=== PATIENT | male | born 1930 | race Caucasian/White ===

== ENCOUNTER 2016-10-05 15:16 | Inpatient (IN) | payer MEDICARE, OTHER ==
--- NOTE | ~2016-10-05 | DS ---
Discharge Summary [facility] [address] [place]. [address] NAME: DOROTEO LANGE : 29 STATUS : DIS IN PAT#: [id number] AGE: 86 ADM/REG DATE : 10/05/16 MR#: [id number] REPORT SERV DATE: 10/07/16 DICTATED BY: MAHAD LAWRENCE DATE: 10/07/16 REPORT STATUS : Draft TRANSCRIBED BY: NILESH DATE: 10/07/16 ADMISSION DATE: 10/05/2016 DISCHARGE DATE: 10/07/2016 More than 30 minutes in total was spent on this discharge. DISCHARGE DIAGNOSES: 1. Right lower extremity cellulitis. 2. Sepsis syndrome. 3. Renal insufficiency. 4. Hypertension. DISPOSITION: The patient will be discharged in excellent condition to the followup with the primary care physician, Dr. Landis in [place] in one to two weeks. DISCHARGE MEDICATIONS: Allopurinol 100 mg once daily, aspirin 81 mg once daily, carvedilol 25 mg b.i.d., niacin 750 mg two p.o. at bedtime, omeprazole 20 mg daily, pravastatin 40 mg daily, Hytrin 5 mg two p.o. at bedtime, fish oil daily, Lasix 40 mg daily, and potassium chloride 20 mEq daily. LABORATORY DATA: Pertinent testing during hospitalization includes a white blood count on admission of 15,000, on discharge 7.9, hemoglobin 12.9, sodium 139, potassium 3.9, chloride 107, BUN and creatinine of 14 and 1.9 on admission, on discharge his creatinine was 1.2, with a GFR 54. His glucose is 97, and calcium 10.1. HOSPITAL COURSE: Mr. Lange is an 86-year-old white gentleman, who presented to the hospital with right lower extremity redness, rigors, chills, and high fevers. He was started on IV vancomycin. He dramatically improved over the next 36 hours. At this point, he is completely afebrile. His white blood count has returned to normal. He is feeling much better. His right leg edema and redness is significantly improved. His renal insufficiency has resolved. At this point, he will be discharged home in excellent condition. DICTATED BY: Mahad Lawrence M.D. DD/NILESH Mahad Lawrence M.D. / [id number] CC: Mahad Lawrence M.D. Discharge Summary [address] [address] NAME: DOROTEO LANGE : 29 STATUS : DIS IN PAT#: [id number] AGE: 86 ADM/REG DATE : 10/05/16 MR#: [id number] REPORT SERV DATE: 10/07/16 DICTATED BY: MAHAD LAWRENCE DATE: 10/07/16 REPORT STATUS : Draft TRANSCRIBED BY: MODL DATE: 10/07/16 Thomas Landis D.O.
--- NOTE | ~2016-10-05 | HP ---
History And Physical [place] [address] [facility] [place]. [address] NAME: DOROTEO LANGE : 29 STATUS : ADM IN [facility]#: [id number] AGE: 86 ADM/REG DATE : 10/05/16 MR#: [id number] REPORT SERV DATE: 10/05/16 DICTATED BY: JADEN BAH DATE: 10/05/16 REPORT STATUS : Draft TRANSCRIBED BY: MODL DATE: 10/05/16 DATE OF ADMISSION: 10/05/2016 CHIEF COMPLAINT: An 86-year-old male presenting with fevers and right leg cellulitis. HISTORY OF PRESENTING ILLNESS: The patient's history was obtained through careful interview with the patient and , coupled with review of [facility] medical records. About 4 a.m. on the morning leading up to admission, the patient began to develop abdominal pain that will come up out of his sleep. He then had rigors, chills, and high fevers today up to 101.0 (and then 102.4 here in the emergency department). He has been taking Tylenol through the day. He has developed right leg pain. He states that it is the same pain that he has had with four other episodes of cellulitis, an aching hot quality, 10/10 severity. It was not until this evening that he began to see redness develop in his leg similar to previous cellulitis bouts. His abdominal pain is diffuse, nonfocal, soreness, cramping quality, 6/10 severity that comes and goes. He has had nausea. He had one episode of slight vomiting of bile. He has had a poor appetite for about two or three days now. He had lightheadedness. No confusion. He felt unsteady on his feet and weak. No shortness of breath. No chest pain. He has had a chronic nonproductive cough for about two years. REVIEW OF SYSTEMS: Otherwise, a 14-point review of systems was obtained and was negative. PAST MEDICAL HISTORY: 1. Coronary artery disease, status post CABG, 2010. 2. Hypertension. 3. Right leg cellulitis x4. 4. Colitis, seen by Dr. Goldsmith. 5. Benign prostatic hypertrophy. 6. Gout. 7. Negative cardiac stress test, 07/2011, followed by Dr. Carson. PAST SURGICAL HISTORY: 1. CABG, 2010. 2. Left ankle cyst. 3. Left knee surgery. 4. Lumbar spine surgery. History And Physical [address] [address] NAME: DOROTEO LANGE : 29 STATUS : ADM IN [facility]#: [id number] AGE: 86 ADM/REG DATE : 10/05/16 MR#: [id number] REPORT SERV DATE: 10/05/16 DICTATED BY: JADEN BAH DATE: 10/05/16 REPORT STATUS : Draft TRANSCRIBED BY: NILESH DATE: 10/05/16 5. Hemorrhoidectomy, fissure repair. ALLERGIES: NO KNOWN DRUG ALLERGIES. SOCIAL HISTORY: Quit smoking in 1963. Occasional beer. He has been twice. Lives in [place], [place]. 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 He has two children. FAMILY HISTORY: Diabetes, brother with cancer, father with heart disease. CURRENT MEDICATIONS: Include Tylenol, allopurinol 100 mg p.o. daily, Norvasc 10 mg p.o. daily, aspirin 81 mg p.o. b.i.d., Coreg 3.25 mg p.o. b.i.d., Lasix 40 mg p.o. daily, niacin 1500 mg p.o. q.h.s., Prilosec 20 mg daily, potassium 20 mEq p.o. daily, Pravachol 40 mg p.o. daily, Hytrin 10 mg p.o. q.h.s., fish oil. PHYSICAL EXAMINATION: VITAL SIGNS: Temperature 102.4, pulse 114, blood pressure 127/53, respiratory rate 16, and O2 saturation 96% on room air. GENERAL: A pleasant, cooperative male. No evidence of acute distress. HEENT: Pupils equal, round, and reactive to light. No conjunctival pallor. No scleral icterus. Nares are patent. Oropharynx is clear of obstruction. Dry mucous membranes. NECK: Trachea midline. No thyromegaly. LYMPH: No cervical lymphadenopathy. No supraclavicular lymphadenopathy. No inguinal lymphadenopathy. RESPIRATORY: Clear to auscultation at bases. No wheezes, no rales, no rhonchi. Normal respiratory effort. CARDIOVASCULAR: Tachycardic. Regular rhythm. No murmurs, rubs, or gallops. No current extremity edema is appreciated. ABDOMEN: Minimally tender throughout. Nonfocal. No guarding. No rebound. Nondistended. No hepatosplenomegaly. DERMATOLOGICAL: The patient's right leg from about the valdivia downward to his ankle has erythema, heat, swelling, and tenderness. No ulceration. No purulent drainage at this time. Very tender to palpation. Otherwise, warm and dry extremities. No pallor. No cyanosis. PSYCHIATRIC: Normal affect. Good mood. Alert and oriented x3. LABORATORY DATA: White blood cell count 14.9, hemoglobin 15, hematocrit 42, platelets 127. Sodium 139, potassium 3.9, chloride 107, bicarb 30, BUN 14, creatinine 1.29, glucose 95, procalcitonin 5.22, lactic acid 1.5, INR 1.2, total bilirubin 1.6. Urinalysis, negative for infection. STUDIES: 1. Chest x-ray by my own evaluation shows no acute cardiopulmonary process. 2. CT scan of the abdomen and pelvis shows no acute intraabdominal process. ASSESSMENT AND PLAN: 1. Sepsis. White blood cell count of 14.9, fever of 102.4, tachycardia. Check blood History And Physical [address] [address] NAME: DOROTEO LANGE : 29 STATUS : ADM IN [facility]#: [id number] AGE: 86 ADM/REG DATE : 10/05/16 MR#: [id number] REPORT SERV DATE: 10/05/16 DICTATED BY: JADEN BAH DATE: 10/05/16 REPORT STATUS : Draft TRANSCRIBED BY: MODGrace DATE: 10/05/[address] on IV antibiotics. Noted elevated procalcitonin. We will follow. 2. Right leg cellulitis. Check blood cultures. Place on IV vancomycin. 3. Renal insufficiency. Place on IV fluids. Hold Lasix for now. 4. Abdominal pain, but negative CT scan of the abdomen and pelvis. KPL/MODL Jaden Bah M.D. / [id number] CC: Michaela Archer D.O.
[~2016-10-05 15:16] MED LIST: ASAB PO; FISH-EPA1000 MG PO; HYTRIN10 MG PO; LOP25 PO; MULTIPLE VIT PO; PRAVAC PO; ROLAIDS PO; SLO-NIACIN750 MG PO; Z100 PO
[2016-10-05 15:41] LABS: BASOPHILS 0.1 %; BASOPHILS ABSOLUTE 0.01 10/3/uL (0.0-0.16); EOSINOPHILS 0 %; HEMOGLOBIN 15.2 g/dL (13.6-17.8); IMMATURE GRANULOCYTES 0.7 %; LYMPHOCYTES 2.1 %; LYMPHOCYTES ABSOLUTE 0.31 10/3/uL (0.67-4.30); MEAN CORPUS HGB CONC 36.2 g/dL (32.0-36.0); MEAN CORPUSCULAR HEMOGLOB 33.9 pg (26.0-34.0); MEAN CORPUSCULAR VOLUME 93.5 fL (80-100); MEAN PLATELET VOLUME 9.1 fL (9.2-13.0); MONOCYTES 5.6 %; MONOCYTES ABSOLUTE 0.83 10/3/uL (0.21-1.20); NEUTROPHILS 91.5 %; NEUTROPHILS ABSOLUTE 13.62 10/3/uL (2.02-8.40); PLATELET COUNT 127 10/3/uL (150-400); RBC DISTRIBUTION WIDTH 12.5 % (12.0-16.0); RED CELL COUNT 4.49 10/6/uL (4.7-6.1)
[2016-10-05 15:42] LABS: ER CBC TAT 0 Hrs 11 Mins; MANUAL DIFF NO %; WHITE BLOOD CELLS 14.9 10/3/uL (4.5-10.5)
[2016-10-05 15:52] LABS: INTERNATIONAL NORMAL RATI 1.2 UNITS (-); PARTIAL THROMBO TIME 33.2 SEC (22.5-37.2)
[2016-10-05 15:58] LABS: A/G RATIO 1.7 (0.7-1.9); ALBUMIN 4.3 G/DL (3.5-5.0); ALKALINE PHOSPHATASE 66 U/L (45-117); BUN (BLOOD UREA NITROGEN) 14 MG/DL (6-23); CALCIUM, SERUM 10.8 MG/DL (8.5-10.4); CHLORIDE, SERUM 107 MMOL/L (96-112); CO2 (CARBON DIOXIDE) 30 MMOL/L (24-34); CREATININE 1.29 MG/DL (0.70-1.30); GFR AFRICAN AMERICAN 57 ML/MIN (>=60); GFR NON AFRICAN AMERICAN 50 ML/MIN (>=60); GLOBULIN 2.5 G/DL (2.5-4.1); GLUCOSE, SERUM 95 MG/DL (60-99); POTASSIUM, SERUM 3.9 MMOL/L (3.5-5.3); SGOT(AST) 20 U/L (5-40); SGPT(ALT) 28 U/L (5-65); SODIUM, SERUM 139 MMOL/L (135-148); TOTAL BILIRUBIN 1.6 MG/DL (0-1.2); TOTAL PROTEIN 6.8 G/DL (6.0-8.5)
[2016-10-05 16:00] LABS: LACTATE 1.5 MMOL/L (0.3-2.4)
[2016-10-05 16:29] LABS: PROCALCITONIN 5.22 ng/mL (<0.5)
[2016-10-05 16:42] LABS: WBC (NOT ORDERED) (RFLEX) 0 (0-5)
[2016-10-05 16:53] LABS: ASCORBIC ACID (UR NOT ORDER) NEG (NEG); BILIRUBIN, URINE NEGATIVE (NEG); ER URINALYSIS TAT 0 Hrs 11 Mins; KETONE, URINE NEGATIVE (NEG); LEUKOCYTE ESTERASE(NOT OR NEG (NEG); NITRITE (URINE) NEG (NEG)
[2016-10-05] MEDS ORDERED: OTC FISH OIL PO (18:19)
[2016-10-05] MEDS ORDERED: SLO-NIACIN750 MG PO (18:20)
[2016-10-05] MEDS ORDERED: NORV10 PO (18:20)
[2016-10-05] MEDS ORDERED: PRAVACHOL40 MG PO (18:21)
[2016-10-05] MEDS ORDERED: COREG3 PO (18:21)
[2016-10-05] MEDS ORDERED: HYTRIN10 MG PO (18:21)
[2016-10-05] MEDS ORDERED: HALF81 PO (18:22)
[2016-10-05] MEDS ORDERED: Z100 PO (18:22)
[2016-10-05] MEDS ORDERED: ACET500CAP PO (18:22)
[2016-10-05] MEDS ORDERED: PRILO PO (18:23)
[2016-10-05] MEDS ORDERED: L40 PO (18:23)
[2016-10-05] MEDS ORDERED: KLOR-CON M2020 MEQ PO (18:23)
[2016-10-06 05:19] LABS: BASOPHILS 0.1 %; BASOPHILS ABSOLUTE 0.01 10/3/uL (0.0-0.16); EOSINOPHILS 0.1 %; EOSINOPHILS ABSOLUTE 0.01 10/3/uL (0.0-0.53); HEMOGLOBIN 12.9 g/dL (13.6-17.8); IMMATURE GRANULOCYTES 0.3 %; IMMATURE GRANULOCYTES ABSOLUTE 0.04 10/3/uL (0.0-0.11); LYMPHOCYTES 7.8 %; LYMPHOCYTES ABSOLUTE 0.92 10/3/uL (0.67-4.30); MEAN CORPUS HGB CONC 35.5 g/dL (32.0-36.0); MEAN CORPUSCULAR HEMOGLOB 33.2 pg (26.0-34.0); MEAN CORPUSCULAR VOLUME 93.3 fL (80-100); MEAN PLATELET VOLUME 9.1 fL (9.2-13.0); MONOCYTES 4.1 %; MONOCYTES ABSOLUTE 0.49 10/3/uL (0.21-1.20); NEUTROPHILS 87.6 %; PLATELET COUNT 114 10/3/uL (150-400); RBC DISTRIBUTION WIDTH 12.7 % (12.0-16.0); RED CELL COUNT 3.89 10/6/uL (4.7-6.1); WHITE BLOOD CELLS 11.9 10/3/uL (4.5-10.5)
[2016-10-06 05:20] LABS: HEMATOCRIT 36.3 % (40.0-51.0); MANUAL DIFF NO %
[2016-10-06 05:32] LABS: INTERNATIONAL NORMAL RATI 1.5 UNITS (-)
[2016-10-06 05:33] LABS: PARTIAL THROMBO TIME 47.5 SEC (22.5-37.2)
[2016-10-06 05:36] LABS: A/G RATIO 1.4 (0.7-1.9); ALBUMIN 3.3 G/DL (3.5-5.0); ALKALINE PHOSPHATASE 54 U/L (45-117); BUN (BLOOD UREA NITROGEN) 18 MG/DL (6-23); CALCIUM, SERUM 10.4 MG/DL (8.5-10.4); CHLORIDE, SERUM 108 MMOL/L (96-112); CO2 (CARBON DIOXIDE) 22 MMOL/L (24-34); CREATININE 1.11 MG/DL (0.70-1.30); GFR AFRICAN AMERICAN 69 ML/MIN (>=60); GFR NON AFRICAN AMERICAN 59 ML/MIN (>=60); GLOBULIN 2.3 G/DL (2.5-4.1); GLUCOSE, SERUM 102 MG/DL (60-99); POTASSIUM, SERUM 3.7 MMOL/L (3.5-5.3); SGOT(AST) 19 U/L (5-40); SGPT(ALT) 24 U/L (5-65); SODIUM, SERUM 138 MMOL/L (135-148); TOTAL BILIRUBIN 1.5 MG/DL (0-1.2); TOTAL PROTEIN 5.6 G/DL (6.0-8.5); TROPONIN I <0.02 NG/ML (<0.05)
[2016-10-06 06:14] LABS: PROCALCITONIN 6.51 ng/mL (<0.5)
[2016-10-07 05:07] LABS: BASOPHILS 0.1 %; BASOPHILS ABSOLUTE 0.01 10/3/uL (0.0-0.16); EOSINOPHILS 0.6 %; EOSINOPHILS ABSOLUTE 0.05 10/3/uL (0.0-0.53); HEMATOCRIT 36.2 % (40.0-51.0); HEMOGLOBIN 12.7 g/dL (13.6-17.8); IMMATURE GRANULOCYTES 0.3 %; IMMATURE GRANULOCYTES ABSOLUTE 0.02 10/3/uL (0.0-0.11); LYMPHOCYTES 14.8 %; LYMPHOCYTES ABSOLUTE 1.17 10/3/uL (0.67-4.30); MANUAL DIFF NO %; MEAN CORPUS HGB CONC 35.1 g/dL (32.0-36.0); MEAN CORPUSCULAR HEMOGLOB 32.7 pg (26.0-34.0); MEAN CORPUSCULAR VOLUME 93.3 fL (80-100); MEAN PLATELET VOLUME 9.4 fL (9.2-13.0); MONOCYTES 7.1 %; MONOCYTES ABSOLUTE 0.56 10/3/uL (0.21-1.20); NEUTROPHILS 77.1 %; NEUTROPHILS ABSOLUTE 6.07 10/3/uL (2.02-8.40); PLATELET COUNT 113 10/3/uL (150-400); RBC DISTRIBUTION WIDTH 12.7 % (12.0-16.0); RED CELL COUNT 3.88 10/6/uL (4.7-6.1); WHITE BLOOD CELLS 7.9 10/3/uL (4.5-10.5)
[2016-10-07 05:21] LABS: BUN (BLOOD UREA NITROGEN) 15 MG/DL (6-23); CALCIUM, SERUM 10.1 MG/DL (8.5-10.4); CHLORIDE, SERUM 111 MMOL/L (96-112); CO2 (CARBON DIOXIDE) 24 MMOL/L (24-34); GFR AFRICAN AMERICAN 63 ML/MIN (>=60); GFR NON AFRICAN AMERICAN 54 ML/MIN (>=60); GLUCOSE, SERUM 97 MG/DL (60-99); POTASSIUM, SERUM 4.2 MMOL/L (3.5-5.3); SODIUM, SERUM 142 MMOL/L (135-148)
[2016-10-07] MEDS ORDERED: COREG25 PO (09:12)
[2016-10-07] MEDS ORDERED: DICLOXACILL500 MG (09:16)
[2016-11-12] MEDS ORDERED: DURICEF (09:37)
== END 2016-10-07 10:35 | disposition home or self-care (01) | DRG 872 ==
LOC: ER 15:16 → 7NO 19:49
PROVIDERS: Family Medicine; Hospitalist; Nurse Practitioner
DX: A41.9 Sepsis, unspecified organism (principal); L03.115 Cellulitis of right lower limb; Z95.1 Presence of aortocoronary bypass graft; I10 Essential (primary) hypertension; I25.10 Atherosclerotic heart disease of native coronary artery without angina pectoris; N40.0 Benign prostatic hyperplasia without lower urinary tract symptoms; M10.9 Gout, unspecified; Z87.891 Personal history of nicotine dependence; N28.9 Disorder of kidney and ureter, unspecified
CPT/HCPCS: 71010; 74176; 80048; 80053; 81001; 83605; 83735; 83880; 84145; 84443; 84484; 85025; 85610; 85730; 87040; 93005; 99285; A9270-GY; J1885; J3370